=== PATIENT | male | born 1965 | race Caucasian/White ===

== ENCOUNTER 2022-11-15 07:43 | Inpatient (IN) | payer OTHER | END 2022-11-18 14:43 | disposition home or self-care (01) | DRG 432 | LOC: ER 07:43 → MEDS 07:44 | PROVIDERS: ADMIT Internal Medicine | PROC: 06L38CZ Occlusion of Esophageal Vein with Extraluminal Device, Via Natural or Artificial Opening Endoscopic (ICD-10-PCS; principal; 2022-11-15) | DX: K70.30 Alcoholic cirrhosis of liver without ascites (principal); I85.11 Secondary esophageal varices with bleeding; K76.6 Portal hypertension; D62 Acute posthemorrhagic anemia; I86.4 Gastric varices; I10 Essential (primary) hypertension; K31.89 Other diseases of stomach and duodenum; E86.0 Dehydration; F10.11 Alcohol abuse, in remission; E11.9 Type 2 diabetes mellitus without complications; F17.210 Nicotine dependence, cigarettes, uncomplicated; Z80.0 Family history of malignant neoplasm of digestive organs; Z86.010 Personal history of colon polyps; Z86.19 Personal history of other infectious and parasitic diseases; Z79.2 Long term (current) use of antibiotics; Z79.899 Other long term (current) drug therapy ==